=== PATIENT | male | born 1980 | race Caucasian/White ===

== ENCOUNTER 2018-12-07 01:05 | Emergency (ER) | payer SELFPAY ==
[~2018-12-07] VITALS: Ht 167.6 cm; Wt 55.0 kg
[2018-12-07] MEDS ORDERED: SODIUM CHLORIDE 0.9% 1,000 ML IV ONE (01:45)
[2018-12-07] MEDS ORDERED: LORAZEPAM 2MG/ML CPJ IV ONE (01:45)
[2018-12-07 02:53] LABS: BASOPHILS % 0.8 % (0.0-2.0); EOSINOPHILS % 0.4 % (0.0-5.0); HEMATOCRIT. 38.4 % (42.0-52.0); HEMOGLOBIN. 12.6 g/dL (14.0-18.0); LYMPHOCYTES % 11.2 % (20.0-50.0); MEAN CORPUSCULAR VOLUME 88.4 fL (80.0-94.0); MEAN PLATELET VOLUME 8.3 fl (7.4-10.4); MONOCYTES % 9.9 % (2.0-8.0); NEUTROPHILS % 77.7 % (40.0-76.0); PLATELET 251 x1000/uL (130-400); RED BLOOD CELL COUNT 4.34 mill/uL (4.7-6.1); RED CELL DISTRIBUTION WIDTH 13.9 % (11.6-14.6)
[2018-12-07 03:09] LABS: CHLORIDE 109 mEq/L (98-107)
[2018-12-07 03:13] LABS: ETHANOL BLOOD < 10 mg/dL
[2018-12-07 04:47] LABS: CLARITY URINE CLEAR (CLEAR); COLOR URINE YELLOW (YELLOW); KETONES URINE NEGATIVE (NEGATIVE); LEUKOCYTE ESTERASE URINE 1+ (NEGATIVE); NITRITE URINE NEGATIVE (NEGATIVE); OCCULT BLOOD URINE 2+ (NEGATIVE); PROTEIN URINE 1+ (NEGATIVE); SPECIFIC GRAVITY URINE 1.029 (1.005-1.030)
[2018-12-07 05:06] LABS: *AMPHETAMINES SCREEN URINE PRESUMTIVE POSITIVE (NEGATIVE); *BARBITURATES SCREEN URINE NEGATIVE (NEGATIVE); *BENZODIAZEPINES SCREEN URINE PRESUMTIVE POSITIVE (NEGATIVE); *COCAINE SCREEN URINE NEGATIVE (NEGATIVE); METHADONE URINE SCREEN NEGATIVE (NEGATIVE)
[2018-12-07 05:07] LABS: CANNABINOID URINE SCREEN PRESUMTIVE POSITIVE (NEGATIVE); OPIATES URINE SCREEN NEGATIVE (NEGATIVE); PHENCYCLIDINE URINE SCREEN NEGATIVE (NEGATIVE)
[2018-12-07 11:39] VITALS: BP 142/90
== END 2018-12-07 12:13 | disposition home or self-care (01) ==
LOC: ER 01:05
DX: G92 Toxic encephalopathy (principal); F12.10 Cannabis abuse, uncomplicated; F15.10 Other stimulant abuse, uncomplicated; F13.10 Sedative, hypnotic or anxiolytic abuse, uncomplicated
CPT/HCPCS: 36415; 80053; 80305; 80320; 81003; 85025; 87086; 93005; 96361; 96374; 99284; J2060; J7030; G0480

== ENCOUNTER 2020-11-12 11:44 | Emergency (ER) | payer MEDICAID ==
[~2020-11-12] VITALS: Ht 167.6 cm; Wt 55.0 kg
[2020-11-12 11:47] VITALS: BP 125/87
[2020-11-12] MEDS ORDERED: ACETAMINOPHEN 325MG TABLET PO ONE (12:30)
[2020-11-12] MEDS ORDERED: IBUP-2029 MT (14:33)
== END 2020-11-12 15:34 | disposition home or self-care (01) ==
LOC: EDBD 11:44 → ER 11:44
DX: S09.8XXA Other specified injuries of head, initial encounter (principal); M54.2 Cervicalgia; Y92.488 Other paved roadways as the place of occurrence of the external cause; W22.8XXA Striking against or struck by other objects, initial encounter; Y93.55 Activity, bike riding; M54.6 Pain in thoracic spine
CPT/HCPCS: 70486; 72128; 99285

== ENCOUNTER 2021-07-09 13:00 | Emergency (ER) | payer MEDICAID ==
[~2021-07-09] VITALS: Ht 167.6 cm; Wt 64.0 kg
[~2021-07-09 13:00] MED LIST: IBUP-2029 MT
[2021-07-09] MEDS ORDERED: IBUPROFEN 400MG TABLET PO ONE (13:30)
[2021-07-09] MEDS ORDERED: LIDOCAINE HCL 1% 20ML VIAL (Pyxis) INJ INFIL ONE (13:30)
[2021-07-09] MEDS ORDERED: ACETAMINOPHEN 325MG TABLET PO ONE (13:30)
[2021-07-09] MEDS ORDERED: BACITRACIN ZINC OINT UDPKT TOP ONE (13:30)
[2021-07-09] MEDS ORDERED: BO1 TP (15:30)
[2021-07-09] MEDS ORDERED: TOPUD MT (15:30)
[2021-07-09 15:43] VITALS: BP 125/89
== END 2021-07-09 15:43 | disposition home or self-care (01) ==
LOC: ER 13:37
DX: S61.411A Laceration without foreign body of right hand, initial encounter (principal); Y08.89XA Assault by other specified means, initial encounter; Y93.89 Activity, other specified; Y92.89 Other specified places as the place of occurrence of the external cause; Y99.8 Other external cause status
CPT/HCPCS: 73130; 99284; J3490

== ENCOUNTER 2021-09-19 10:33 | Emergency (ER) | payer MEDICAID ==
[~2021-09-19] VITALS: Ht 167.6 cm; Wt 73.0 kg
[~2021-09-19 10:33] MED LIST changes: +BO1 TP; +TOPUD MT
[2021-09-19] MEDS ORDERED: KETOROLAC 30MG/ML VIAL IV STA (11:21)
[2021-09-19] MEDS ORDERED: ONDANSETRON HCL 4MG/2ML INJ IV STA (11:25)
[2021-09-19] MEDS ORDERED: PIPERACILLIN/TAZ 3.375G PREMIX 50 ML IV ONE (11:30)
[2021-09-19] MEDS ORDERED: SODIUM CHLORIDE 0.9% 1,000 ML IV ONE (11:30)
[2021-09-19] MEDS ORDERED: SODIUM CHLORIDE 0.9% 1000ML BAG (SEPSIS BOLUS) IV ONE (11:30)
[2021-09-19] MEDS ORDERED: VANCOMYCIN 1 G PREMIX 200 ML IV ONE (11:30)
[2021-09-19] MEDS ORDERED: CLINDAMYCIN 600 MG in DEXTROSE 5% WATER 50 ML IV ONE (16:30)
[2021-09-19 16:59] LABS: HEMATOCRIT. 48.8 % (42.0-52.0); HEMOGLOBIN. 16.3 g/dL (14.0-18.0); MEAN CORPUSCULAR HEMOGLOBIN 29.3 pg (28.0-32.0); MEAN CORPUSCULAR VOLUME 87.4 fL (80.0-94.0); MEAN PLATELET VOLUME 9.1 fl (7.4-10.4); PLATELET 310 x1000/uL (130-400); RED BLOOD CELL COUNT 5.58 mill/uL (4.7-6.1); RED CELL DISTRIBUTION WIDTH 14.5 % (11.6-14.6)
[2021-09-19 17:06] LABS: CHLORIDE 96 mEq/L (98-107)
[2021-09-19 17:15] LABS: CREATINE KINASE 433 IU/L (39-308)
[2021-09-19] MEDS ORDERED: CLINDAMYCIN 600MG PREMIX 50 ML IV SCH (17:15)
[2021-09-19] MEDS ORDERED: ONDANSETRON HCL 4MG/2ML INJ IV NR (17:30)
[2021-09-19] MEDS ORDERED: KETOROLAC 30MG/ML VIAL IV NR (17:30)
[2021-09-19] MEDS ORDERED: PIPERACILLIN/TAZ 3.375G PREMIX 50 ML IV NR (17:30)
[2021-09-19] MEDS ORDERED: VANCOMYCIN 1 G PREMIX 200 ML IV NR (18:30)
[2021-09-19] MEDS ORDERED: IOHEXOL-300 100 ML BOTTLE ONE (18:58)
[2021-09-19 18:59] LABS: PLATELET ESTIMATE NORMAL
[2021-09-19 20:47] LABS: CLARITY URINE CLEAR (CLEAR); COLOR URINE YELLOW (YELLOW); KETONES URINE NEGATIVE (NEGATIVE); LEUKOCYTE ESTERASE URINE NEGATIVE (NEGATIVE); NITRITE URINE NEGATIVE (NEGATIVE); OCCULT BLOOD URINE NEGATIVE (NEGATIVE); PH URINE 5.5 (4.5-8.0); PROTEIN URINE 1+ (NEGATIVE)
[2021-09-19] MEDS ORDERED: MORPHINE SULFATE 4 MG/ML CPJ (NOT FOR IM USE) IV ONE (21:15)
[2021-09-19] MEDS ORDERED: ACETAMINOPHEN 325MG TABLET PO ONE (21:15)
[2021-09-19] MEDS ORDERED: ACETAMINOPHEN 325MG TABLET PO PRN (22:30)
[2021-09-19] MEDS ORDERED: KETOROLAC 30MG/ML VIAL IV PRN (22:30)
[2021-09-19] MEDS ORDERED: CLONIDINE 0.1MG TABLET PO PRN (22:30)
[2021-09-19] MEDS ORDERED: MAGNESIUM/ALUMINUM HYDROXIDE/SIMETHICONE 30ML UDC PO PRN (22:30)
[2021-09-19] MEDS ORDERED: NITROGLYCERIN 0.4MG TABLET SL SL PRN (22:30)
[2021-09-19] MEDS ORDERED: ONDANSETRON HCL 4MG/2ML INJ IV PRN (22:30)
[2021-09-19] MEDS ORDERED: TRAMADOL 50MG TABLET PO PRN (22:30)
[2021-09-19] MEDS ORDERED: ZOLPIDEM TARTRATE 5MG TABLET PO PRN (22:30)
[2021-09-19] MEDS ORDERED: PIPERACILLIN/TAZ 3.375G PREMIX 50 ML IV SCH (22:30)
[2021-09-19] MEDS ORDERED: DOCUSATE SODIUM 100MG CAPSULE PO PRN (22:30)
[2021-09-19] MEDS ORDERED: IPRATROPIUM/ALBUTEROL 0.5-3(2.5)MG/3ML NEB NEB PRN (22:30)
[2021-09-19] MEDS ORDERED: DEXT 5%/0.45% NACL 1000ML 1,000 ML IV SCH (22:30)
[2021-09-19] MEDS ORDERED: GUAIFENESIN 200MG/10ML SUGAR FREE UDC PO PRN (22:30)
[2021-09-19 22:58] LABS: TOTAL IRON BINDING CAPACITY 458 ug/dL (250-450)
[2021-09-19] MEDS ORDERED: PIPERACILLIN/TAZOBACTAM 3.375G in DEXT 5% WATER 50ML IV SCH (23:00)
[2021-09-19] MEDS ORDERED: VANCOMYCIN 1 G PREMIX 200 ML IV SCH (23:30)
[2021-09-20] MEDS ORDERED: DILTIAZEM HCL 60MG TABLET PO SCH
[2021-09-20] MEDS ORDERED: ADENOSINE 3 MG/ML 2ML VIAL IV ONE ×2 (00:15)
[2021-09-20] MEDS ORDERED: PIPERACILLIN/TAZ 3.375G PREMIX 50 ML IV SCH (01:00)
[2021-09-20 04:17] VITALS: BP 119/76
[2021-09-20] MEDS ORDERED: ASCORBIC ACID 500 MG TABLET PO SCH (09:00)
[2021-09-20] MEDS ORDERED: FAMOTIDINE 20MG TABLET PO SCH (09:00)
[2021-09-20] MEDS ORDERED: ENOXAPARIN 40MG/0.4ML SYR SUBCUT SCH (09:00)
[2021-09-20] MEDS ORDERED: VANCOMYCIN 1 G PREMIX 200 ML IV SCH (09:00)
[2021-09-20] MEDS ORDERED: ZINC SULFATE 220 MG ( 50 ) CAPSULE PO SCH (09:00)
[2021-09-20 15:52] LABS: *AMPHETAMINES SCREEN URINE PRESUMTIVE POSITIVE (NEGATIVE); *BARBITURATES SCREEN URINE NEGATIVE (NEGATIVE); *BENZODIAZEPINES SCREEN URINE NEGATIVE (NEGATIVE); *COCAINE SCREEN URINE PRESUMTIVE POSITIVE (NEGATIVE); PHENCYCLIDINE URINE SCREEN NEGATIVE (NEGATIVE)
[2021-09-20 15:53] LABS: OPIATES URINE SCREEN PRESUMTIVE POSITIVE (NEGATIVE)
[2021-09-20 16:01] LABS: CANNABINOID URINE SCREEN PRESUMTIVE POSITIVE (NEGATIVE)
[2021-09-20 16:02] LABS: METHADONE URINE SCREEN NEGATIVE (NEGATIVE)
== END 2021-09-20 04:26 | disposition left against medical advice (07) ==
LOC: ER 10:33 → ENRESERV 09-20 15:40 → CANRESERV 09-20 15:40 → CANBEDREQ 09-20 16:02
DX: L03.114 Cellulitis of left upper limb (principal); F15.10 Other stimulant abuse, uncomplicated; I82.402 Acute embolism and thrombosis of unspecified deep veins of left lower extremity; M79.602 Pain in left arm; F17.210 Nicotine dependence, cigarettes, uncomplicated; E83.51 Hypocalcemia; E43 Unspecified severe protein-calorie malnutrition; M62.82 Rhabdomyolysis; E87.1 Hypo-osmolality and hyponatremia; I47.1 Supraventricular tachycardia; M79.603 Pain in arm, unspecified; A41.9 Sepsis, unspecified organism; D72.829 Elevated white blood cell count, unspecified; Z20.822 Contact with and (suspected) exposure to COVID-19
CPT/HCPCS: 36415; 71045; 73080; 73201; 80053; 80305; 81003; 82550; 82607; 82746; 83540; 83550; 83605; 83615; 84145; 85025; 86140; 87040; 87086; 87426; 93005; 93971; 96365; 96366; 96367; 96368; 96375; 99291; J1885; J2270; J2405; J2543; J3370; J3490; J7030; Q9967; J7060

== ENCOUNTER 2021-09-20 11:01 | Inpatient (IN) | payer MEDICAID ==
[~2021-09-20] VITALS: Ht 167.6 cm; Wt 63.5 kg
[2021-09-20] MEDS ORDERED: LORAZEPAM 2MG/ML CPJ IV ONE (11:30)
[2021-09-20] MEDS ORDERED: SODIUM CHLORIDE 0.9% 1,000 ML IV ONE (11:30)
[2021-09-20] MEDS ORDERED: CLINDAMYCIN 600 MG in DEXTROSE 5% WATER 50 ML IV ONE (11:30)
[2021-09-20] MEDS ORDERED: CLINDAMYCIN 600MG PREMIX 50 ML IV SCH ×2 (11:45→22:00)
[2021-09-20 12:02] LABS: HEMATOCRIT. 44.8 % (42.0-52.0); HEMOGLOBIN. 15.2 g/dL (14.0-18.0); MEAN CORPUSCULAR HEMOGLOBIN 29.5 pg (28.0-32.0); MEAN PLATELET VOLUME 8.8 fl (7.4-10.4); PLATELET 285 x1000/uL (130-400); RED BLOOD CELL COUNT 5.15 mill/uL (4.7-6.1); RED CELL DISTRIBUTION WIDTH 14.8 % (11.6-14.6)
[2021-09-20 12:09] LABS: CHLORIDE 99 mEq/L (98-107)
[2021-09-20 12:13] LABS: ETHANOL BLOOD < 10 mg/dL
[2021-09-20 12:36] LABS: PLATELET ESTIMATE NORMAL
[2021-09-20] MEDS ORDERED: SODIUM CHLORIDE 0.9% 1000ML BAG (SEPSIS BOLUS) IV ONE (13:00)
[2021-09-20] MEDS ORDERED: ONDANSETRON HCL 4MG/2ML INJ IV PRN (13:45)
[2021-09-20] MEDS ORDERED: ACETAMINOPHEN 325MG TABLET PO PRN (13:45)
[2021-09-20 15:13] LABS: CANNABINOID URINE SCREEN PRESUMTIVE POSITIVE (NEGATIVE); PHENCYCLIDINE URINE SCREEN NEGATIVE (NEGATIVE)
[2021-09-20 15:14] LABS: *BARBITURATES SCREEN URINE NEGATIVE (NEGATIVE); *BENZODIAZEPINES SCREEN URINE NEGATIVE (NEGATIVE); *COCAINE SCREEN URINE PRESUMTIVE POSITIVE (NEGATIVE); METHADONE URINE SCREEN NEGATIVE (NEGATIVE); OPIATES URINE SCREEN PRESUMTIVE POSITIVE (NEGATIVE)
[2021-09-20 15:17] LABS: *AMPHETAMINES SCREEN URINE PRESUMTIVE POSITIVE (NEGATIVE)
[2021-09-20 17:00] VITALS: BP 117/75
[2021-09-20] MEDS: METOPROLOL TARTRATE 50MG TABLET PO SCH ×2 (17:56→22:42)
[2021-09-20] MEDS ORDERED: METOPROLOL SUCCINATE 50MG ER TABLET PO SCH (18:30)
[2021-09-20] MEDS: KETOROLAC 30MG/ML VIAL IV PRN (19:15)
[2021-09-20 20:00] VITALS: BP 97/69
[2021-09-20] MEDS: CLINDAMYCIN 600MG PREMIX 50 ML IV SCH (21:49)
[2021-09-21] VITALS: BP 108/88
[2021-09-21] MEDS: KETOROLAC 30MG/ML VIAL IV PRN (02:04)
[2021-09-21 04:00] VITALS: BP 101/73
[2021-09-21] MEDS: CLINDAMYCIN 600MG PREMIX 50 ML IV SCH (06:25)
[2021-09-21 07:10] LABS: HEMATOCRIT. 46.7 % (42.0-52.0); HEMOGLOBIN. 15.6 g/dL (14.0-18.0); MEAN CORPUSCULAR HEMOGLOBIN 29.4 pg (28.0-32.0); MEAN CORPUSCULAR VOLUME 87.8 fL (80.0-94.0); MEAN PLATELET VOLUME 9.4 fl (7.4-10.4); PLATELET 304 x1000/uL (130-400); RED BLOOD CELL COUNT 5.32 mill/uL (4.7-6.1); RED CELL DISTRIBUTION WIDTH 14.6 % (11.6-14.6)
[2021-09-21 07:40] LABS: CHLORIDE 103 mEq/L (98-107)
[2021-09-21 08:00] VITALS: BP 158/98
[2021-09-21 12:34] LABS: PLATELET ESTIMATE NORMAL
== END 2021-09-21 09:30 | disposition left against medical advice (07) | DRG 383 ==
LOC: ER 11:44 → 6EST 13:16 → EDBEDREQTM 13:18 → EDBEDREQ 13:18 → EDBEDREQSVC 15:40 → ENRESERV 15:42 → 6EST 16:28 → 8WST 23:31
PROVIDERS: ADMIT Internal Medicine; ATTEND Internal Medicine
DX: L03.114 Cellulitis of left upper limb (principal); E43 Unspecified severe protein-calorie malnutrition; E87.1 Hypo-osmolality and hyponatremia; F12.90 Cannabis use, unspecified, uncomplicated; F41.9 Anxiety disorder, unspecified; Z53.29 Procedure and treatment not carried out because of patient's decision for other reasons; F15.90 Other stimulant use, unspecified, uncomplicated; F14.90 Cocaine use, unspecified, uncomplicated; F17.210 Nicotine dependence, cigarettes, uncomplicated; Z68.22 Body mass index [BMI] 22.0-22.9, adult; Z71.51 Drug abuse counseling and surveillance of drug abuser
CPT/HCPCS: 36415; 71045; 80048; 80053; 80305; 80320; 83605; 84145; 84484; 85025; 93005; 99291; J1885; J2060; J3490; J7030; J7040; J7060; G0480